=== PATIENT | male | born 1955 | race Caucasian/White ===

== ENCOUNTER 2024-03-10 05:26 | Inpatient (IN) | payer MEDICARE ==
[~2024-03-10] VITALS: Ht 167.6 cm; Wt 92.5 kg
[2024-03-10 05:45] LABS: BASOPHILS ABSOLUTE AUTO 0.09 K/mm3 (0.00-0.23); BASOPHILS PERCENT AUTO 0 % (0-2); EOSINOPHILS ABSOLUTE AUTO 0.33 K/mm3 (0.00-0.68); EOSINOPHILS PERCENT AUTO 1 % (0-6); Hematocrit 30.4 % (37.0-53.0); Hemoglobin 9.5 g/dL (13.5-17.5); IMMATURE GRAN ABSOLUTE AUTO 0.32 K/mm3 (0.00-0.10); IMMATURE GRAN PERCENT AUTO 1 % (0-1); LYMPHOCYTES ABSOLUTE AUTO 2.18 K/mm3 (0.84-5.20); LYMPHOCYTES PERCENT AUTO 9 % (21-46); MONOCYTES ABSOLUTE AUTO 1.13 K/mm3 (0.16-1.47); MONOCYTES PERCENT AUTO 5 % (4-13); Mean Corpuscular HGB Conc 31.3 g/dL (31.5-36.5); Mean Corpuscular Volume 83 fL (80-100); Mean Platelet Volume 9.9 fL (9.1-12.4); NEUTROPHILS ABSOLUTE AUTO 21.27 K/mm3 (1.96-9.15); NEUTROPHILS PERCENT AUTO 84 % (41-73); Platelet Count 253 K/mm3 (150-400); RDW Coefficient Variation 16.5 % (11.7-14.2); RDW Standard Deviation 49.6 fL (35.1-46.3); Red Blood Cell Count 3.65 M/mm3 (4.30-5.90); White Blood Cell Count 25.32 K/mm3 (4.00-11.30)
[2024-03-10] MEDS ORDERED: NS 1,000 ML IV SCH ×2 (05:55→07:40)
[2024-03-10 06:14] LABS: Albumin, Blood 1.6 g/dL (3.4-5.0); Albumin/Globulin Ratio 0.2 (0.8-1.8); Bun/Creatinine Ratio 17.2 (12.0-20.0); Calcium, Blood 8.6 mg/dL (8.5-10.1); Creatinine, Blood 1.28 mg/dL (0.60-1.20); Globulin, Blood 7.1 g/dL (2.2-4.0); Magnesium, Blood 2.1 mg/dL (1.6-2.4); Potassium, Blood 4.5 mmol/L (3.5-5.5); Total Protein, Blood 8.7 g/dL (6.4-8.2)
[2024-03-10] MEDS ORDERED: CefTRIAXone Sodium 1,000 MG in NS 100 ML IV ONE (07:40)
[2024-03-10 08:56] LABS: Source, Urine Clean Catch
[2024-03-10 09:02] LABS: Appearance, Urine Clear (Clear); Bilirubin, Urine Neg (Neg); Blood, Urine 5+ (Neg); Color, Urine Yellow (P-Yellow); Glucose Qualitative, Urine Neg (Neg); Ketones, Urine Neg (Neg); Leukocyte Esterase, Urine 1+ (Neg); Nitrite, Urine Pos (Neg); Protein, Urine 2+ (Neg); Specific Gravity, Urine 1.015 (1.003-1.022); Urobilinogen, Urine 1+ (Normal)
[2024-03-10 09:09] LABS: Red Blood Cells, Urine 25-50 /hpf (0-2)
[2024-03-10 09:10] LABS: Bacteria Few /hpf; Squamous Epithelial Cells Few /hpf (Few)
[2024-03-10 09:12] LABS: Hyaline Casts 0-2 /lpf (0-2)
[2024-03-10] MEDS ORDERED: Piperacillin/Tazobactam Sod 4.5 GM in NS 100 ML IV ONE (10:15)
[2024-03-10] MEDS ORDERED: Vancomycin HCL 2,000 MG in NS 520 ML IV ONE (10:15)
[2024-03-10] MEDS ORDERED: FLU VACC TS2024-25(6MOS UP)/PF 45 MCG/0.5 ML SYRINGE IM ONE (11:30)
[2024-03-10] MEDS ORDERED: Ondansetron HCl 2 MG / ML 2ML Vial IV PRN (11:35)
[2024-03-10 13:33] VITALS: BP 132/84
--- NOTE | 2024-03-10 14:45 | NUR ---
ADMIN NOTE PT A&OX4. PT ADMITTED DUE TO SEVERE SEPSIS W LACTIC ACIDOSIS. PT TRANSFERED TO FLOOR FROM ER BY GIFTY, PT TRANSFERED SELF TO BED. PT VITALS COMPLETED. VSS. BP SLIGHTLY ELEVATED. TELE ON PT. SCD'S ON BLE. PT ORIENTED TO ROOM, FALL PRECAUTIONS AND CALL LIGHT. BED IN LOWEST POSSIBLE POSITION. PT IS COOROPERATIVE WITH CARE, CALL LIGHT ON REACH. PLAN FOR NEPH TUBE PLACEMENT TOMORROW, PT WILL BE NPO AT MIDNIGHT. PT CALLED TO NOTIFY.
[2024-03-10 15:03] VITALS: BP 130/72
[2024-03-10] MEDS ORDERED: Propranolol HCL 20 MG TAB PO SCH (16:30)
[2024-03-10 16:45] VITALS: BP 126/65
[2024-03-10] MEDS ORDERED: NS 250 ML IV PRN (17:50)
[2024-03-10] MEDS ORDERED: Furosemide 10 MG / ML 2ML Vial IV SCH (18:00)
[2024-03-10] MEDS ORDERED: Albumin Human 50 ML IV SCH (18:00)
[2024-03-10] MEDS ORDERED: Spironolactone 50 MG Tab PO SCH (18:00)
--- NOTE | 2024-03-10 19:33 | NUR ---
SHIFT SUMMARY PT A&OX4. PT ADMITTED DUE TO SEVERE SEPTSIS WITH LACTIC ACIDOSIS. PT DID NOT REPORT PAIN, ALBUMIN WAS REPLENISHED, AT END OF SHIFT PT REPORTED INCREASE IN ABD DISTENTION POST ALBUMIN ADMINISTRATION, ORDERED LASIX WAS GIVEN, NIGHT NURSE NOTIFIED. PT BED IN LOWEST POSITION, PT CALLS APPROPRIATE. CALL LIGHT IN REACH. PT WILL BE NPO AT MIDNIGHT FOR NEPH TUBE PLACEMENT IN AM. PT USES URINAL AND IS SBA.
[2024-03-10 20:11] VITALS: BP 128/63
[2024-03-10] MEDS ORDERED: Lactobacil 2-S.Thermo-Bifido 1 1 Cap PO SCH (21:00)
[2024-03-10] MEDS ORDERED: Docusate Sodium 100 MG Cap PO SCH (21:00)
[2024-03-11 02:29] VITALS: BP 121/57
--- NOTE | 2024-03-11 04:03 | NUR ---
SHIFT SUMMARY PATIENT HAD NO ACUTE CHANGE. AXOX 4 AND SBA TO BR. NPO FOR PROCEDURE. DENIES CHEST PAIN, SOB, AND N/V. VSS/FEBRILE. PIV INTACT. TELE MONITOR NSR 80. SLEPT MOST OF THE SHIFT. COOPERATIVE WITH CARE. CALL LIGHT IN REACH. BED IN LOWEST POSITION. WILL CONTINUE TO MONITOR UNTIL DAY SHIFT NURSE ASSUMES CARE.
[2024-03-11 05:41] LABS: BASOPHILS PERCENT AUTO 1 % (0-2); EOSINOPHILS ABSOLUTE AUTO 0.47 K/mm3 (0.00-0.68); EOSINOPHILS PERCENT AUTO 2 % (0-6); Hematocrit 25.1 % (37.0-53.0); Hemoglobin 7.8 g/dL (13.5-17.5); IMMATURE GRAN ABSOLUTE AUTO 0.44 K/mm3 (0.00-0.10); IMMATURE GRAN PERCENT AUTO 2 % (0-1); LYMPHOCYTES ABSOLUTE AUTO 2.16 K/mm3 (0.84-5.20); LYMPHOCYTES PERCENT AUTO 10 % (21-46); MONOCYTES ABSOLUTE AUTO 1.01 K/mm3 (0.16-1.47); MONOCYTES PERCENT AUTO 5 % (4-13); Mean Corpuscular HGB 25.4 pg (26.0-34.0); Mean Corpuscular HGB Conc 31.1 g/dL (31.5-36.5); Mean Corpuscular Volume 82 fL (80-100); Mean Platelet Volume 9.7 fL (9.1-12.4); NEUTROPHILS ABSOLUTE AUTO 17.99 K/mm3 (1.96-9.15); NEUTROPHILS PERCENT AUTO 81 % (41-73); Platelet Count 257 K/mm3 (150-400); RDW Coefficient Variation 16.4 % (11.7-14.2); RDW Standard Deviation 47.8 fL (35.1-46.3); Red Blood Cell Count 3.07 M/mm3 (4.30-5.90); White Blood Cell Count 22.17 K/mm3 (4.00-11.30)
[2024-03-11 06:07] LABS: Albumin, Blood 1.6 g/dL (3.4-5.0); Albumin/Globulin Ratio 0.3 (0.8-1.8); Bilirubin, Total 0.8 mg/dL (0.1-1.0); Bun/Creatinine Ratio 17.6 (12.0-20.0); Calcium, Blood 8.2 mg/dL (8.5-10.1); Creatinine, Blood 1.36 mg/dL (0.60-1.20); Globulin, Blood 6.2 g/dL (2.2-4.0); Potassium, Blood 4.5 mmol/L (3.5-5.5); Total Protein, Blood 7.8 g/dL (6.4-8.2)
[2024-03-11 08:09] VITALS: BP 128/74
[2024-03-11] MEDS ORDERED: CefTRIAXone Sodium 1,000 MG in NS 100 ML IV SCH (09:00)
[2024-03-11] MEDS ORDERED: NS 250 ML IV ONE (12:05)
[2024-03-11] MEDS ORDERED: NS 500 ML IV ONE (13:23)
[2024-03-11] MEDS ORDERED: Midazolam HCl 1MG / ML 2ML Vial ONE (13:23)
[2024-03-11] MEDS ORDERED: FentaNYL Citrate 50 MCG/ML 2 ML Injection ONE (13:23)
[2024-03-11 14:22] VITALS: BP 146/79
[2024-03-11 14:33] LABS: Source, Urine Nephrostomy
--- NOTE | 2024-03-11 14:34 | NUR ---
PT BACK FROM NEPHROSTOMY PLACEMENT. PT IS A/OX4, VSS, NEPHROSTOMY TUBE INPLACE AND DRAINING MILKY COLORED PUSS.
[2024-03-11 14:51] VITALS: BP 142/65
[2024-03-11 15:01] LABS: Appearance, Urine Turbid (Clear); Bilirubin, Urine Neg (Neg); Blood, Urine 5+ (Neg); Color, Urine Pale Yellow (P-Yellow); Glucose Qualitative, Urine Neg (Neg); Ketones, Urine 2+ (Neg); Leukocyte Esterase, Urine 3+ (Neg); Nitrite, Urine Neg (Neg); Protein, Urine 3+ (Neg); Urobilinogen, Urine NORM (Normal); pH, Urine 6.5 (5.0-8.0)
[2024-03-11 15:02] LABS: Bacteria Many /hpf; Squamous Epithelial Cells Not Seen /hpf (Few); White Blood Cells, Urine TNTC /hpf (0-5)
--- NOTE | 2024-03-11 15:34 | NUR ---
PT HAS l NEPHROSTOMY TUBE PLACED TODAY WITH ADEQUATE OUTPUT . PT HAS NO QUESTIONS OR CONCERNS.
[2024-03-11 16:01] VITALS: BP 137/72
[2024-03-11 19:44] VITALS: BP 119/67
[2024-03-12 04:50] VITALS: BP 136/64
[2024-03-12 05:17] LABS: BASOPHILS ABSOLUTE AUTO 0.08 K/mm3 (0.00-0.23); BASOPHILS PERCENT AUTO 0 % (0-2); EOSINOPHILS ABSOLUTE AUTO 0.33 K/mm3 (0.00-0.68); EOSINOPHILS PERCENT AUTO 2 % (0-6); Hematocrit 23.3 % (37.0-53.0); Hemoglobin 7.4 g/dL (13.5-17.5); IMMATURE GRAN ABSOLUTE AUTO 0.25 K/mm3 (0.00-0.10); IMMATURE GRAN PERCENT AUTO 1 % (0-1); LYMPHOCYTES ABSOLUTE AUTO 2.12 K/mm3 (0.84-5.20); LYMPHOCYTES PERCENT AUTO 11 % (21-46); MONOCYTES ABSOLUTE AUTO 0.92 K/mm3 (0.16-1.47); MONOCYTES PERCENT AUTO 5 % (4-13); Mean Corpuscular HGB 26.2 pg (26.0-34.0); Mean Corpuscular HGB Conc 31.8 g/dL (31.5-36.5); Mean Corpuscular Volume 83 fL (80-100); Mean Platelet Volume 9.7 fL (9.1-12.4); NEUTROPHILS ABSOLUTE AUTO 15.95 K/mm3 (1.96-9.15); NEUTROPHILS PERCENT AUTO 81 % (41-73); Platelet Count 209 K/mm3 (150-400); RDW Coefficient Variation 16.4 % (11.7-14.2); Red Blood Cell Count 2.82 M/mm3 (4.30-5.90); White Blood Cell Count 19.65 K/mm3 (4.00-11.30)
[2024-03-12 05:42] LABS: Albumin, Blood 1.6 g/dL (3.4-5.0); Albumin/Globulin Ratio 0.3 (0.8-1.8); Bilirubin, Total 0.6 mg/dL (0.1-1.0); Bun/Creatinine Ratio 19.8 (12.0-20.0); Calcium, Blood 8.2 mg/dL (8.5-10.1); Creatinine, Blood 1.31 mg/dL (0.60-1.20); Globulin, Blood 5.7 g/dL (2.2-4.0); Magnesium, Blood 2.4 mg/dL (1.6-2.4); Phosphorus, Blood 3.3 mg/dL (2.5-4.9); Total Protein, Blood 7.3 g/dL (6.4-8.2)
[2024-03-12 07:58] VITALS: BP 130/66
[2024-03-12 09:04] LABS: International Normalized Ratio 1.21; Prothrombin Time Results 12.8 Sec (9.7-11.5)
[2024-03-12 11:30] LABS: HEPATITIS B SURFACE ANTIBODY <3.10 IU/L; HEPATITIS B SURFACE ANTIGEN Negative (Negative); HEPATITIS BE ANTIBODY Negative (Negative); HEPATITIS BE ANTIGEN Negative (Negative)
[2024-03-12 11:39] LABS: Automated BF WBC Count 0.942 K/mm3 (0-999)
[2024-03-12 11:40] LABS: Body Fluid WBC Count 942 /mm3 (0-999)
[2024-03-12 11:46] LABS: HEPATITIS C AB CIA INTERP Negative (Negative); HEPATITIS C ANTIBODY CIA INDEX 0.24 IV
[2024-03-12 12:18] LABS: Albumin, Body Fluid 0.3 g/dL; Glucose, Body Fluid 204 mg/dL; Lactate Dehydrogenase, Body Fl 38 U/L
[2024-03-12 12:48] LABS: RBC Count, Body Fluid 67 /mm3 (0-0)
[2024-03-12 12:52] LABS: Appearance, Body Fluid Clear (Clear); Color, Body Fluid L Yellow (None-Yellow)
[2024-03-12 12:57] LABS: Total Cell Count, Body Fluid 100
--- NOTE | 2024-03-12 15:54 | NUR ---
PT HAS BEEN RESTING COMOFRTABLY FOR THE DAY. NO C/O PAIN. PT HAS NO QUESTIONS OR CONCERNS.
[2024-03-12 16:16] VITALS: BP 118/61
[2024-03-12 19:50] VITALS: BP 111/62
--- NOTE | 2024-03-13 03:01 | NUR ---
SHIFT SUMMARY PT IS PLEASANT, A&O X4, AND COOPERATIVE WITH CARE. PT DENIES PAIN AND DISCOMFORT.LEFT NEPHROSTOMY DRAINING WELL, FLUID IS PINKISH IN COLOR. NO ACUTE EVENTS DURING THIS SHIFT. BED AT THE LOWEST POSITION, CALL LIGHT WITHIN REACH. PT IS ABLE TO MAKE HIS NEEDS KNOWN. BOWEL TONES HYPERACTIVE, MILD DISTENTION IN ABDOMEN. PT STATES FEELING BETTER. TELE: SR @79 WITH BBB.
[2024-03-13 05:07] VITALS: BP 123/66
[2024-03-13 05:32] LABS: BASOPHILS ABSOLUTE AUTO 0.08 K/mm3 (0.00-0.23); BASOPHILS PERCENT AUTO 1 % (0-2); EOSINOPHILS ABSOLUTE AUTO 0.23 K/mm3 (0.00-0.68); EOSINOPHILS PERCENT AUTO 1 % (0-6); Hematocrit 23.6 % (37.0-53.0); Hemoglobin 7.3 g/dL (13.5-17.5); IMMATURE GRAN PERCENT AUTO 2 % (0-1); LYMPHOCYTES ABSOLUTE AUTO 1.95 K/mm3 (0.84-5.20); LYMPHOCYTES PERCENT AUTO 12 % (21-46); MONOCYTES ABSOLUTE AUTO 0.93 K/mm3 (0.16-1.47); MONOCYTES PERCENT AUTO 6 % (4-13); Mean Corpuscular HGB 25.3 pg (26.0-34.0); Mean Corpuscular HGB Conc 30.9 g/dL (31.5-36.5); Mean Corpuscular Volume 82 fL (80-100); Mean Platelet Volume 9.5 fL (9.1-12.4); NEUTROPHILS PERCENT AUTO 79 % (41-73); Platelet Count 186 K/mm3 (150-400); RDW Coefficient Variation 16.1 % (11.7-14.2); RDW Standard Deviation 47.9 fL (35.1-46.3); Red Blood Cell Count 2.88 M/mm3 (4.30-5.90); White Blood Cell Count 16.59 K/mm3 (4.00-11.30)
[2024-03-13 06:10] LABS: Albumin, Blood 1.6 g/dL (3.4-5.0); Albumin/Globulin Ratio 0.3 (0.8-1.8); Bilirubin, Total 0.5 mg/dL (0.1-1.0); Calcium, Blood 8.1 mg/dL (8.5-10.1); Creatinine, Blood 1.25 mg/dL (0.60-1.20); Globulin, Blood 5.7 g/dL (2.2-4.0); Magnesium, Blood 1.9 mg/dL (1.6-2.4); Phosphorus, Blood 2.6 mg/dL (2.5-4.9); Potassium, Blood 3.8 mmol/L (3.5-5.5); Total Protein, Blood 7.3 g/dL (6.4-8.2)
[2024-03-13 07:54] VITALS: BP 123/63
[2024-03-13] MEDS ORDERED: CefTRIAXone 1000 MG Vial ONE (08:27)
[2024-03-13] MEDS ORDERED: PROP10 PO (12:36)
[2024-03-13] MEDS ORDERED: CEPH500 PO (12:37)
[2024-03-13] MEDS ORDERED: SPIR50 PO (12:37)
[2024-03-13] MEDS ORDERED: FURO20 PO (12:38)
--- NOTE | 2024-03-13 13:24 | NUR ---
DISCHARGE NOTE PATIENT A/OX4, ABLE TO MAKE NEEDS KNOWN. PATIENT SPOUSE AT BEDSIDE DURING DISCHARGE EDUCATION. PATIENT EDUCATED REGARDING MULTIPLE FOLLOW UP APPOINTMENTS AND LAB WORK NEEDED WELL NEW MEDICATIONS. MEDS FAXED TO PATIENT'S PHARMACY OF CHOICE. NEPHROSTOMY CARE INSTRUCTIONS PROVIDED TO PATIENT. PATIET AND SPOUSE WITH NO QUESTIONS AT TIME OF DISCHARGE, PIV AND TELEMTRY REMOVED PRIOR TO DISCHARGE. NO OTHER CONCERNS, PATIENT ASSISTED TO FAMILY VEHICLE VIA WHEELCHAIR BY [facility] STAFF.
--- NOTE | 2024-03-16 08:55 | NUR ---
PATIENT CALLED AND STATED THAT HE HAS BEEN HAVING DIARRHEA. PATIENT ON KEFLEX AND HAS 7 MORE DAYS OF TREATMENT. PATIENT DOES NOT HAVE A PCP APPOINTMENT UNTIL JUNE. ENCOURAGED PATIENT TO CALL PCP OR GO TO URGENT CARE IF DIARRHEA CONTINUES.
== END 2024-03-13 12:57 | disposition home or self-care (01) | DRG 871 ==
LOC: ER 05:26 → MEDS 11:29
PROVIDERS: Emergency Medicine; Hospitalist; Student in an Organized Health Care Education/Training Program; ADMIT Internal Medicine
PROC: 3E03329 Introduction of Other Anti-infective into Peripheral Vein, Percutaneous Approach (ICD-10-PCS; 2024-03-10)
PROC: 0W9G3ZZ Drainage of Peritoneal Cavity, Percutaneous Approach (ICD-10-PCS; principal; 2024-03-12)
DX: A41.9 Sepsis, unspecified organism (principal); K65.2 Spontaneous bacterial peritonitis; N13.6 Pyonephrosis; R18.8 Other ascites; K76.6 Portal hypertension; N17.9 Acute kidney failure, unspecified; E87.20 Acidosis, unspecified; N20.2 Calculus of kidney with calculus of ureter; D63.1 Anemia in chronic kidney disease; R73.9 Hyperglycemia, unspecified; R65.20 Severe sepsis without septic shock; N18.30 Chronic kidney disease, stage 3 unspecified; K74.69 Other cirrhosis of liver; Z87.891 Personal history of nicotine dependence
CPT/HCPCS: 36415; 49083; 74177; 76705; 76937; 80053; 81001; 82042; 82105; 82945; 83605; 83615; 83690; 83735; 84100; 84157; 85025; 85610; 85730; 86803; 86850; 86900; 86901; 87040; 87070; 87075; 87077; 87086; 87147; 87186; 87205; 89051; 96361; 96365-59; 96366; 96367; 99152; 99153; 99285-25; A9270; C1729; C1769; J0696; J1940; J2250; J2543; J3010; J3370; J7030; J7040; J7050; P9047; Q9967

== ENCOUNTER 2024-05-10 08:01 | Day surgery (SDC) | payer MEDICARE ==
[~2024-05-10] VITALS: Ht 167.6 cm; Wt 81.9 kg
[~2024-05-10 08:01] MED LIST: CEPH500 PO; FURO20 PO; LOPE2C PO; Lactated Ringer's 1,000 ML IV SCH; PROP10 PO; SPIR50 PO; SULTRIDS PO
[2024-05-10] MEDS ORDERED: PROP10 PO (08:20)
[2024-05-10 08:29] VITALS: BP 135/93
--- NOTE | 2024-05-10 08:37 | NUR ---
Ambulatory in Day Surgery History, Chart, Medications and Allergies reviewed before start of procedure. Pre-Op teaching done. Pt verbalizes understanding. Patient States Post-Procedure ride home has been arranged.
[2024-05-10] MEDS ORDERED: Benzocaine Oral Spray 0.5ML UD ONE (08:58)
[2024-05-10] MEDS ORDERED: propofoL 40 ML IV ONE (09:09)
--- NOTE | 2024-05-10 09:17 | NUR ---
05/10/24 0917 Andrés Martin MONITOR INTACT WITH CONTINUOUS PULSE OXIMETRY, CONTINUOUS END TITAL CO2, AND INTERMITTENT BLOOD PRESSURE.AND EKG ANESTHESIA PER DR. ANDRE
[2024-05-10 09:40] VITALS: BP 110/70
[2024-05-10 09:45] VITALS: BP 110/74
--- NOTE | 2024-05-10 10:05 | NUR ---
DISCHARGE PT A&OX4/VSS/RA/FOLLOWS COMMANDS/C&DBS/TALKING/SMILING/DRESSED SELF/RUDOLPH PO H20, DC INS PROVIDED TO PT AND /STATOR WINDER, SIGNED, LEFT VIA WC WITH DC VOL WITH ALL PERSONAL POSSESSIONS TO GO HOME WITH COPY OF DC INS.
== END 2024-05-10 23:00 | disposition home or self-care (01) ==
LOC: ORSCMMR 08:01 → ORSCSDS 12:00 → ORSCMMR 23:00 → ORD 08-09 12:45
PROVIDERS: Internal Medicine Gastroenterology
PROC: 0DJ08ZZ Inspection of Upper Intestinal Tract, Via Natural or Artificial Opening Endoscopic (ICD-10-PCS; principal; 2024-05-10 09:15)
DX: K74.60 Unspecified cirrhosis of liver (principal); Z79.899 Other long term (current) drug therapy
CPT/HCPCS: A9270; J2704; J7120

== ENCOUNTER 2024-05-18 09:59 | Emergency (ER) | payer MEDICARE ==
[~2024-05-18] VITALS: Ht 167.6 cm; Wt 81.7 kg
[~2024-05-18 09:59] MED LIST changes: -Lactated Ringer's 1,000 ML IV SCH
== END 2024-05-18 12:18 | disposition home or self-care (01) ==
LOC: ER 09:59
DX: Z43.6 Encounter for attention to other artificial openings of urinary tract (principal); I10 Essential (primary) hypertension; Z87.442 Personal history of urinary calculi; K74.60 Unspecified cirrhosis of liver; Z59.89 Other problems related to housing and economic circumstances
CPT/HCPCS: 99282

== ENCOUNTER → 2024-06-14 | Outpatient (CLI) | payer MEDICARE | END | disposition home or self-care (01) | LOC: LAB 09:41 → LAB SHORT 09:41 | DX: L02.212 Cutaneous abscess of back [any part, except buttock and flank] (principal) | CPT/HCPCS: 87070; 87075; 87205 ==